=== PATIENT | male | born 1960 | race Caucasian/White ===

== ENCOUNTER 2016-11-23 16:06 | Emergency (ER) | payer OTHER ==
[~2016-11-23] VITALS: Ht 172.7 cm; Wt 75.0 kg
[2016-11-23 17:35] VITALS: BP 112/70
== END 2016-11-23 17:38 | disposition home or self-care (01) ==
LOC: ED 16:39
DX: S46.911A Strain of unspecified muscle, fascia and tendon at shoulder and upper arm level, right arm, initial encounter (principal); S46.811A Strain of other muscles, fascia and tendons at shoulder and upper arm level, right arm, initial encounter; X58.XXXA Exposure to other specified factors, initial encounter; Y93.89 Activity, other specified; Y99.8 Other external cause status; Y92.89 Other specified places as the place of occurrence of the external cause
CPT/HCPCS: 99284

== ENCOUNTER 2019-02-05 19:43 | Emergency (ER) | payer SELFPAY ==
[~2019-02-05] VITALS: Ht 175.3 cm; Wt 74.8 kg
[2019-02-05 19:44] VITALS: BP 132/77
[2019-02-05] MEDS ORDERED: LIDOCAINE-MPF 1%, 5ML ONE ×2 (20:18→20:42)
[2019-02-05] MEDS ORDERED: DIPH,PERTUSS(ACELL),TET VAC/PF 0.5 ML IM-VACC ONE ×2 (20:18→20:30)
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
[2019-02-05] MEDS ORDERED: LIDOCAINE-MPF 1%, 5ML INFIL ONE (20:30)
--- NOTE | 2019-02-05 20:50 | NUR ---
PROVIDER AT BEDSIDE FOR LAC REPAIR--PT REFUSING TO HAVE LAC REPAIRED AT THIS TIME.
--- NOTE | 2019-02-05 21:00 | NUR ---
PT DECLINED LIDO TO NUMB AND IRRIGATE WOUND. PT TOLERATED MINIMAL IRRIGATION WITHOUT LIDO
--- NOTE | 2019-02-05 21:01 | NUR ---
AMBULATED TO DISCHARGE WINDOW, STEADY GAIT
== END 2019-02-05 21:07 | disposition home or self-care (01) ==
LOC: ED 19:50
DX: S01.81XA Laceration without foreign body of other part of head, initial encounter (principal); F15.20 Other stimulant dependence, uncomplicated; F17.200 Nicotine dependence, unspecified, uncomplicated; Z72.9 Problem related to lifestyle, unspecified; X58.XXXA Exposure to other specified factors, initial encounter; Y93.89 Activity, other specified; Y92.410 Unspecified street and highway as the place of occurrence of the external cause; Y99.8 Other external cause status
CPT/HCPCS: 90471; 90715; 99283